=== PATIENT | female | born 1985 | race American Indian/Alaskan Native ===

== ENCOUNTER 2018-06-06 05:02 | Outpatient (CLI) | payer MEDICAID ==
[2018-06-06] MEDS ORDERED: LACTATED RINGERS 1,000 ML IV ONE ×2 (05:34→06:28)
[2018-06-06 06:26] LABS: Bilirubin,Urine NEG (Negative); Blood,Urine NEG (Negative); Color,Urine Yellow (Yellow); Mucus,Urine 2+ /HPF; Protein,Urine <15 mg/dL mg/dL (Negative); Urobilinogen,Urine < 2.0 mg/dL (<2.0)
[2018-06-06] MEDS ORDERED: ZOFRAN IV ONE (06:28)
[2018-06-06] MEDS: BRETHINE SUB-Q SCH ×2 (06:32→06:52)
[2018-06-06 07:20] VITALS: BP 105/58
[2018-06-06] MEDS ORDERED: ceFAZolin 2 GM in NACL 0.9% 100 ML IV ONE (07:36)
[2018-06-06] MEDS ORDERED: ANCEF/STERILE WATER 2 GM/20 ML 2 GM/20 ML SYRINGE IV SCH (08:00)
[2018-06-06] MEDS ORDERED: VISTARIL PO ONE (09:00)
== END 2018-06-06 08:38 | disposition home or self-care (01) ==
LOC: TRG 05:02
PROVIDERS: ATTEND Obstetrics & Gynecology
DX: O47.03 False labor before 37 completed weeks of gestation, third trimester (principal); Z3A.30 30 weeks gestation of pregnancy
CPT/HCPCS: 36415; 81001; 82731; 82962; 96361; 96365; 96372; J0690; J3105; J7120; 96360; Q0177

== ENCOUNTER 2018-06-19 22:01 | Outpatient (CLI) | payer MEDICAID ==
[2018-06-19] MEDS ORDERED: LACTATED RINGERS 1,000 ML IV ONE (22:35)
[2018-06-19 22:52] VITALS: BP 121/72
[2018-06-19] MEDS ORDERED: BRETHINE SUB-Q ONE (23:48)
[2018-06-20 00:13] LABS: Bacteria,Urine 2+ /HPF (Negative); Bilirubin,Urine NEG (Negative); Blood,Urine NEG (Negative); Color,Urine Straw (Yellow); Protein,Urine <15 mg/dL mg/dL (Negative); Urobilinogen,Urine < 2.0 mg/dL (<2.0)
[2018-06-20] MEDS ORDERED: BRETHINE SUB-Q ONE (01:23)
== END 2018-06-20 01:40 | disposition home or self-care (01) ==
LOC: TRG 22:01
PROVIDERS: ATTEND Obstetrics & Gynecology
DX: O47.03 False labor before 37 completed weeks of gestation, third trimester (principal); O24.410 Gestational diabetes mellitus in pregnancy, diet controlled; Z3A.32 32 weeks gestation of pregnancy
CPT/HCPCS: 81001; J3105; J7120

== ENCOUNTER 2018-06-22 12:21 | Observation (INO) | payer MEDICAID ==
[2018-06-22] MEDS ORDERED: PROCARDIA*For Tocolysis only PO STA (13:03)
[2018-06-22 13:08] LABS: Bilirubin,Urine NEG (Negative); Blood,Urine NEG (Negative); Color,Urine Yellow (Yellow); Mucus,Urine FEW /HPF; Protein,Urine <15 mg/dL mg/dL (Negative); Urobilinogen,Urine < 2.0 mg/dL (<2.0); WBC,Urine < 1.0 /HPF (0.0-6.0)
[2018-06-22] MEDS ORDERED: LACTATED RINGERS 500 ML IV ONE (13:22)
[2018-06-22 13:29] LABS: Hematocrit 35.2 % (30.3-42.9); Hemoglobin 11.9 gm/dl (10.1-14.3); Mean Corpuscular HGB Conc 34 % (30-34); Mean Corpuscular Volume 89 fl (79-97); Platelet Count 147 K/mm3 (140-440); Red Blood Count 3.97 M/mm3 (3.65-5.03); Red Cell Distribution Width 14.9 % (13.2-15.2)
[2018-06-22] MEDS ORDERED: CELESTONE SOLUSPAN IM ONE (14:10)
[2018-06-22] MEDS ORDERED: AMBIEN PO PRN (14:28)
[2018-06-22] MEDS ORDERED: TYLENOL PO PRN (14:28)
[2018-06-22] MEDS ORDERED: ZOFRAN IV PRN (14:28)
[2018-06-22] MEDS ORDERED: COLACE PO PRN (14:28)
[2018-06-22] MEDS ORDERED: ALUM-MAG HYDROX-SIMETH 200-200-20MG/5ML PO PRN (14:28)
--- NOTE | 2018-06-22 14:28 | History and Physical Report ---
History of Present Illness Date of examination: 06/22/18 Date of admission: 06/22/18 Chief complaint: SIUP at 33 weeks gestation with contractions. History of present illness: Patient is a 32 year old , LMP 11/03/17, EDC 08/10/18 at 33 weeks gestation who was sent from the office for contractions. She states that she had contractions 2 days ago and was seen in the triage. Terbutaline was given and the contractions stopped. She was told to follow up in the offcie today. She denies any fluid leakage or bleeding. She reports good movem ent. Exam (by surgical nurse) showed a closed cervix. tracing is CAT1. Past History Past Surgical History: no surgical history Family/Genetic History: none Social history: no significant social history - Obstetrical History Expected Date of Delivery: 08/10/18 Actual Gestation: 33 Week(s) 0 Day(s) : 4 Para: 3 Number of Living Children: 3 Medications and Allergies Allergies Allergy/AdvReac Type Severity Reaction Status Date / Time No Known Allergies Allergy Verified 06/06/18 05:35 Home Medications Medication Instructions Recorded Confirmed Last Taken Type Vit,Calc76/Iron/Folic 1 tab PO DAILY 06/06/18 06/06/18 06/05/18 History [Pnv 29-1 Tablet] - Vital Signs Vital signs: Vital Signs Pulse BP 88 124/69 06/22/18 12:34 06/22/18 12:34 Temp Pulse Resp BP Pulse Ox 88 124/69 06/22/18 12:34 06/22/18 12:34 - Physical Exam Cardiovascular: Normal S1, Normal S2 Lungs: Positive: Clear to auscultation Vulva: both: normal Deep Tendon Reflex Grade: Normal +2 - Obstetrical FHR: category 1 Cervical Dilatation: 0 Cervical Effacement Percentage: 0 station: -3 Uterine Contraction Pattern: Irregular Uterine Contraction Intensity: Moderate Results Result Diagrams: 06/22/18 13:15 All other labs normal. Assessment and Plan - Patient Problems (1) 33 weeks gestation of Current Visit: Yes Status: Acute (2) labor Current Visit: Yes Status: Acute Plan to address problem: Admit for observation. IV hydration. IV amcpicillin for GBS prophylaxis. Procardia PO Q6 hrs. Genital Cx done. FFN pending. Patient had sonogram 2 days ago at [facility]. (3) Gestational diabetes Current Visit: Yes Status: Acute Plan to address problem: FS fasting and 2-hr PP. (4) Obesity Current Visit: Yes Status: Acute Qualifiers: Obesity type: due to excess calories
[2018-06-22] MEDS ORDERED: LACTATED RINGERS 1,000 ML IV SCH (16:00)
[2018-06-22] MEDS ORDERED: MAGNESIUM SULFATE 4GM/100ML 4 GM/100 ML BAG IV ONE (17:30)
[2018-06-22] MEDS: PRENATAL VITAMIN PO SCH (18:00)
[2018-06-22] MEDS: AMPICILLIN/NS 1 GM/50 ML 1 GM/50 ML BAG IV SCH ×2 (18:00→22:01)
[2018-06-22] MEDS: LACTATED RINGERS 1,000 ML IV SCH (18:52)
[2018-06-22] MEDS: MAGNESIUM SULFATE 40GM/1000ML 40 GM/1,000 ML BAG IV SCH (19:40)
[2018-06-22] MEDS: PROCARDIA*For Tocolysis only PO SCH (20:00)
[2018-06-23] MEDS: PROCARDIA*For Tocolysis only PO SCH ×4 (00:46→18:35)
[2018-06-23] MEDS: AMPICILLIN/NS 1 GM/50 ML 1 GM/50 ML BAG IV SCH ×5 (02:17→18:36)
[2018-06-23] MEDS: PRENATAL VITAMIN PO SCH (09:18)
[2018-06-23] MEDS: LACTATED RINGERS 1,000 ML IV SCH (09:18)
--- NOTE | 2018-06-23 10:57 | Progress Note ---
Assessment and Plan - Patient Problems (1) 33 weeks gestation of Current Visit: Yes Status: Acute (2) labor Current Visit: Yes Status: Acute Plan to address problem: Continue inpatient management. IV hydration. IV ampicillin for GBS prophylaxis. Magnesium sulfate for 24-hrs for neuroprotection. Celstone dose #2 due this afternoon. Genital Cx done. FFN pending. Patient had sonogram 2 days ago at [facility]. If patient remains asymptomatic, she may be discharged home after magnesium and celestone completed. (3) Gestational diabetes Current Visit: Yes Status: Acute Plan to address problem: FS fasting and 2-hr PP. (4) Obesity Current Visit: Yes Status: Acute Qualifiers: Obesity type: due to excess calories Subjective - Subjective Date of service: 06/23/18 Principal diagnosis: SIUP at 33 weeks gestation with labor. Interval history: Patient is a 32 year old , LMP 11/03/17, EDC 08/10/18 at 33 weeks gestation who was sent from the office for contractions. She states that she had contractions 2 days earlier. She denied any fluid leakage or bleeding. She reports good movement. Exam (by coagulator) showed a closed cervix. tracing is CAT1. She was treated wit procardia which did not work as she continued to contract. She was treated with magnesium sulfate for neuroprotection, IV ampicillin for GBS prophylaxis, celestone for FLM dose#1 given. This AM, she denies any contractions. She reports good movement. She has gestational diabetes. Objective - Vital Signs Vital Signs: Vital Signs - 12hr 06/22/18 06/22/18 06/22/18 23:01 23:04 23:06 Temperature Pulse Rate 104 H 95 H 98 H Respiratory Rate Blood Pressure 100/51 Blood Pressure [Right] O2 Sat by Pulse 96 97 Oximetry 06/22/18 06/22/18 06/22/18 23:11 23:16 23:21 Temperature Pulse Rate 112 H 94 H 97 H Respiratory Rate Blood Pressure Blood Pressure [Right] O2 Sat by Pulse 97 97 97 Oximetry 06/22/18 06/22/18 06/22/18 23:26 23:31 23:36 Temperature Pulse Rate 95 H 102 H 101 H Respiratory Rate Blood Pressure Blood Pressure [Right] O2 Sat by Pulse 97 97 96 Oximetry 06/22/18 06/22/18 06/22/18 23:41 23:46 23:51 Temperature Pulse Rate 118 H 92 H 101 H Respiratory Rate Blood Pressure Blood Pressure [Right] O2 Sat by Pulse 97 97 96 Oximetry 06/22/18 06/23/18 06/23/18 23:56 00:00 00:01 Temperature 98.2 F Pulse Rate 97 H 98 H 100 H Respiratory 18 Rate Blood Pressure Blood Pressure 120/90 [Right] O2 Sat by Pulse 97 100 96 Oximetry 06/23/18 06/23/18 06/23/18 00:03 00:06 00:11 Temperature Pulse Rate 97 H 101 H 101 H Respiratory Rate Blood Pressure 107/58 Blood Pressure [Right] O2 Sat by Pulse 97 97 Oximetry 06/23/18 06/23/18 06/23/18 00:16 00:21 00:26 Temperature Pulse Rate 103 H 101 H 103 H Respiratory Rate Blood Pressure Blood Pressure [Right] O2 Sat by Pulse 97 96 97 Oximetry 06/23/18 06/23/18 06/23/18 00:31 00:36 00:41 Temperature Pulse Rate 99 H 108 H 103 H Respiratory Rate Blood Pressure Blood Pressure [Right] O2 Sat by Pulse 96 97 97 Oximetry 06/23/18 06/23/18 06/23/18 00:46 00:51 00:56 Temperature Pulse Rate 102 H 95 H 106 H Respiratory Rate Blood Pressure Blood Pressure [Right] O2 Sat by Pulse 96 97 97 Oximetry 06/23/18 06/23/18 06/23/18 01:01 01:03 01:06 Temperature Pulse Rate 107 H 99 H 108 H Respiratory Rate Blood Pressure 122/70 Blood Pressure [Right] O2 Sat by Pulse 96 96 Oximetry 06/23/18 06/23/18 06/23/18 01:11 01:16 01:21 Temperature Pulse Rate 112 H 106 H 106 H Respiratory Rate Blood Pressure Blood Pressure [Right] O2 Sat by Pulse 97 96 96 Oximetry 06/23/18 06/23/18 06/23/18 01:26 01:31 01:36 Temperature Pulse Rate 107 H 109 H 109 H Respiratory Rate Blood Pressure Blood Pressure [Right] O2 Sat by Pulse 96 96 94 Oximetry 06/23/18 06/23/18 06/23/18 01:39 01:41 01:46 Temperature Pulse Rate 113 H 108 H 112 H Respiratory Rate Blood Pressure Blood Pressure [Right] O2 Sat by Pulse 94 95 95 Oximetry 06/23/18 06/23/18 06/23/18 01:51 01:56 02:01 Temperature Pulse Rate 108 H 112 H 112 H Respiratory Rate Blood Pressure Blood Pressure [Right] O2 Sat by Pulse 95 96 96 Oximetry 06/23/18 06/23/18 06/23/18 02:03 02:06 02:11 Temperature Pulse Rate 111 H 114 H 111 H Respiratory Rate Blood Pressure 105/58 Blood Pressure [Right] O2 Sat by Pulse 95 96 Oximetry 06/23/18 06/23/18 06/23/18 02:16 02:21 02:26 Temperature Pulse Rate 110 H 108 H 104 H Respiratory Rate Blood Pressure Blood Pressure [Right] O2 Sat by Pulse 96 96 97 Oximetry 06/23/18 06/23/18 06/23/18 02:31 02:36 02:41 Temperature Pulse Rate 102 H 102 H 105 H Respiratory Rate Blood Pressure Blood Pressure [Right] O2 Sat by Pulse 97 96 97 Oximetry 06/23/18 06/23/18 06/23/18 02:46 02:51 02:56 Temperature Pulse Rate 104 H 101 H 104 H Respiratory Rate Blood Pressure Blood Pressure [Right] O2 Sat by Pulse 97 97 97 Oximetry 06/23/18 06/23/18 06/23/18 03:01 03:03 03:06 Temperature Pulse Rate 101 H 104 H 105 H Respiratory Rate Blood Pressure 101/59 Blood Pressure [Right] O2 Sat by Pulse 97 96 Oximetry 06/23/18 06/23/18 06/23/18 03:11 03:16 03:21 Temperature Pulse Rate 101 H 102 H 95 H Respiratory Rate Blood Pressure Blood Pressure [Right] O2 Sat by Pulse 98 96 98 Oximetry 06/23/18 06/23/18 06/23/18 03:26 03:31 03:36 Temperature Pulse Rate 109 H 97 H 100 H Respiratory Rate Blood Pressure Blood Pressure [Right] O2 Sat by Pulse 97 98 98 Oximetry 06/23/18 06/23/18 06/23/18 03:41 03:46 03:51 Temperature Pulse Rate 101 H 102 H 96 H Respiratory Rate Blood Pressure Blood Pressure [Right] O2 Sat by Pulse 98 96 98 Oximetry 06/23/18 06/23/18 06/23/18 03:56 04:00 04:01 Temperature 98.5 F Pulse Rate 101 H 96 H 99 H Respiratory 18 Rate Blood Pressure Blood Pressure 120/90 [Right] O2 Sat by Pulse 98 100 97 Oximetry 06/23/18 06/23/18 06/23/18 04:03 04:06 04:11 Temperature Pulse Rate 96 H 96 H 99 H Respiratory Rate Blood Pressure 96/50 Blood Pressure [Right] O2 Sat by Pulse 97 97 Oximetry 06/23/18 06/23/18 06/23/18 04:16 04:21 04:26 Temperature Pulse Rate 99 H 99 H 99 H Respiratory Rate Blood Pressure Blood Pressure [Right] O2 Sat by Pulse 97 97 97 Oximetry 06/23/18 06/23/18 06/23/18 04:31 04:36 04:41 Temperature Pulse Rate 95 H 101 H 105 H Respiratory Rate Blood Pressure Blood Pressure [Right] O2 Sat by Pulse 97 96 96 Oximetry 06/23/18 06/23/18 06/23/18 04:46 04:51 04:52 Temperature Pulse Rate 101 H 104 H 104 H Respiratory Rate Blood Pressure Blood Pressure [Right] O2 Sat by Pulse 96 96 93 Oximetry 06/23/18 06/23/18 06/23/18 04:56 05:01 05:03 Temperature Pulse Rate 106 H 103 H 100 H Respiratory Rate Blood Pressure 106/62 Blood Pressure [Right] O2 Sat by Pulse 96 96 93 Oximetry 06/23/18 06/23/18 06/23/18 05:06 05:11 05:13 Temperature Pulse Rate 103 H 95 H 104 H Respiratory Rate Blood Pressure Blood Pressure [Right] O2 Sat by Pulse 96 96 94 Oximetry 06/23/18 06/23/18 06/23/18 05:16 05:21 05:25 Temperature Pulse Rate 106 H 102 H 100 H Respiratory Rate Blood Pressure Blood Pressure [Right] O2 Sat by Pulse 96 96 92 Oximetry 06/23/18 06/23/18 06/23/18 05:26 05:31 05:36 Temperature Pulse Rate 94 H 94 H 112 H Respiratory Rate Blood Pressure Blood Pressure [Right] O2 Sat by Pulse 98 97 98 Oximetry 06/23/18 06/23/18 06/23/18 05:41 05:46 05:51 Temperature Pulse Rate 100 H 103 H 98 H Respiratory Rate Blood Pressure Blood Pressure [Right] O2 Sat by Pulse 98 98 97 Oximetry 06/23/18 06/23/1806/23/19 05:56 06:01 06:03 Temperature Pulse Rate 95 H 97 H 100 H Respiratory Rate Blood Pressure 119/68 Blood Pressure [Right] O2 Sat by Pulse 98 98 Oximetry 06/23/18 06/23/18 06/23/18 06:06 06:11 06:16 Temperature Pulse Rate 103 H 97 H 98 H Respiratory Rate Blood Pressure Blood Pressure [Right] O2 Sat by Pulse 98 98 97 Oximetry 06/23/18 06/23/18 06/23/18 06:21 06:26 06:31 Temperature Pulse Rate 97 H 107 H 109 H Respiratory Rate Blood Pressure Blood Pressure [Right] O2 Sat by Pulse 98 98 98 Oximetry 06/23/18 06/23/18 06/23/18 06:36 06:41 06:46 Temperature Pulse Rate 111 H 111 H 107 H Respiratory Rate Blood Pressure Blood Pressure [Right] O2 Sat by Pulse 97 97 97 Oximetry 06/23/18 06/23/18 06/23/18 06:51 06:56 07:01 Temperature Pulse Rate 110 H 108 H 108 H Respiratory Rate Blood Pressure Blood Pressure [Right] O2 Sat by Pulse 97 97 97 Oximetry 06/23/18 06/23/18 06/23/18 07:03 07:06 07:11 Temperature Pulse Rate 109 H 112 H 108 H Respiratory Rate Blood Pressure 110/55 Blood Pressure [Right] O2 Sat by Pulse 97 97 Oximetry 06/23/18 06/23/18 06/23/18 07:16 07:21 07:26 Temperature Pulse Rate 111 H 110 H 107 H Respiratory Rate Blood Pressure Blood Pressure [Right] O2 Sat by Pulse 97 97 97 Oximetry 06/23/18 06/23/18 06/23/18 07:31 07:36 07:41 Temperature Pulse Rate 107 H 107 H 106 H Respiratory Rate Blood Pressure Blood Pressure [Right] O2 Sat by Pulse 98 98 97 Oximetry 06/23/18 06/23/18 06/23/18 07:46 07:51 07:56 Temperature Pulse Rate 106 H 113 H 101 H Respiratory Rate Blood Pressure Blood Pressure [Right] O2 Sat by Pulse 96 98 98 Oximetry 06/23/18 06/23/18 06/23/18 08:01 08:03 08:06 Temperature Pulse Rate 109 H 101 H 106 H Respiratory Rate Blood Pressure 122/72 Blood Pressure [Right] O2 Sat by Pulse 98 97 Oximetry 06/23/18 06/23/18 06/23/18 08:11 08:16 08:21 Temperature Pulse Rate 112 H 116 H 114 H Respiratory Rate Blood Pressure Blood Pressure [Right] O2 Sat by Pulse 98 98 98 Oximetry 06/23/18 06/23/18 06/23/18 08:26 08:31 08:36 Temperature Pulse Rate 108 H 113 H 111 H Respiratory Rate Blood Pressure Blood Pressure [Right] O2 Sat by Pulse 99 98 99 Oximetry 06/23/18 06/23/18 06/23/18 08:41 08:46 08:51 Temperature Pulse Rate 104 H 104 H 107 H Respiratory Rate Blood Pressure Blood Pressure [Right] O2 Sat by Pulse 99 99 99 Oximetry 06/23/18 06/23/18 06/23/18 08:56 09:01 09:03 Temperature Pulse Rate 105 H 107 H 109 H Respiratory Rate Blood Pressure 118/74 Blood Pressure [Right] O2 Sat by Pulse 99 99 Oximetry 06/23/18 06/23/18 06/23/18 09:06 09:11 09:16 Temperature Pulse Rate 103 H 110 H 107 H Respiratory Rate Blood Pressure Blood Pressure [Right] O2 Sat by Pulse 98 98 99 Oximetry 06/23/18 06/23/18 06/23/18 09:21 09:26 09:31 Temperature Pulse Rate 108 H 111 H 103 H Respiratory Rate Blood Pressure Blood Pressure [Right] O2 Sat by Pulse 99 98 98 Oximetry 06/23/18 06/23/18 06/23/18 09:36 09:41 09:46 Temperature Pulse Rate 101 H 101 H 103 H Respiratory Rate Blood Pressure Blood Pressure [Right] O2 Sat by Pulse 98 97 97 Oximetry 06/23/18 06/23/18 06/23/18 09:51 09:56 10:01 Temperature Pulse Rate 99 H 100 H 99 H Respiratory Rate Blood Pressure Blood Pressure [Right] O2 Sat by Pulse 97 97 97 Oximetry 06/23/18 06/23/18 06/23/18 10:03 10:06 10:11 Temperature Pulse Rate 98 H 100 H 103 H Respiratory Rate Blood Pressure 104/53 Blood Pressure [Right] O2 Sat by Pulse 97 97 Oximetry 06/23/18 06/23/18 06/23/18 10:16 10:21 10:26 Temperature Pulse Rate 100 H 98 H 105 H Respiratory Rate Blood Pressure Blood Pressure [Right] O2 Sat by Pulse 97 97 97 Oximetry 06/23/18 06/23/18 06/23/18 10:31 10:36 10:41 Temperature Pulse Rate 107 H 102 H 95 H Respiratory Rate Blood Pressure Blood Pressure [Right] O2 Sat by Pulse 98 99 98 Oximetry 06/23/18 06/23/18 10:46 10:51 Temperature Pulse Rate 94 H 99 H Respiratory Rate Blood Pressure Blood Pressure [Right] O2 Sat by Pulse 98 98 Oximetry - Exam Cardiovascular: Normal S1, Normal S2 Lungs: Clear to auscultation Vulva: both: normal FHR: category 1 Uterine Contraction Monitor Mode: External Uterine Contraction Pattern: Absent Deep Tendon Reflex Grade: Normal +2 - Labs Labs: Abnormal Labs 06/23/18 00:26 Magnesium 3.90 H Laboratory Results - last 24 hr 06/22/18 06/22/18 06/23/18 13:15 Unknown 00:26 WBC 6.4 RBC 3.97 Hgb 11.9 Hct 35.2 MCV 89 MCH 30 MCHC 34 RDW 14.9 Plt Count 147 Magnesium 3.90 H Urine Color Yellow Urine Turbidity Slightly-cloudy Urine pH 6.0 Ur Specific [place] 1.017 Urine Protein <15 mg/dl Urine Glucose (UA) Neg Urine Ketones Neg Urine Blood Neg Urine Nitrite Neg Urine Bilirubin Neg Urine Urobilinogen < 2.0 Ur Leukocyte Esterase Neg Urine WBC (Auto) < 1.0 Urine RBC (Auto) 1.0 U Epithel Cells (Auto) 5.0 Urine Mucus Few - Results US- obstetric: report reviewed
[2018-06-23] MEDS ORDERED: CELESTONE SOLUSPAN IM SCH (14:00)
[2018-06-23] MEDS: MAGNESIUM SULFATE 40GM/1000ML 40 GM/1,000 ML BAG IV SCH (14:26)
[2018-06-23 21:04] VITALS: BP 120/68
== END 2018-06-23 23:15 | disposition home or self-care (01) ==
LOC: TRG 12:21 → LD 14:28 → TRG 17:23
PROVIDERS: ADMIT Obstetrics & Gynecology; ATTEND Obstetrics & Gynecology
DX: O60.03 Preterm labor without delivery, third trimester (principal); O24.419 Gestational diabetes mellitus in pregnancy, unspecified control; O99.213 Obesity complicating pregnancy, third trimester; Z3A.33 33 weeks gestation of pregnancy
CPT/HCPCS: 36415; 59025; 81001; 82962; 83735; 85027; 87086; 96365; 96366; 96372; G0378; J0290; J0702; J3475; J7120; 96361; 96367; 96368

== ENCOUNTER 2018-07-06 17:31 | Outpatient (CLI) | payer MEDICAID ==
[2018-07-06] MEDS ORDERED: LACTATED RINGERS 500 ML IV ONE (18:03)
[2018-07-06 19:35] LABS: Bacteria,Urine 1+ /HPF (Negative); Bilirubin,Urine NEG (Negative); Blood,Urine NEG (Negative); Color,Urine Yellow (Yellow); Protein,Urine <15 mg/dL mg/dL (Negative); Urobilinogen,Urine < 2.0 mg/dL (<2.0)
[2018-07-06 22:01] VITALS: BP 123/69
[2018-07-06] MEDS ORDERED: VISTARIL PO ONE (22:22)
== END 2018-07-06 22:40 | disposition home or self-care (01) ==
LOC: TRG 17:31
PROVIDERS: ATTEND Obstetrics & Gynecology
DX: O47.03 False labor before 37 completed weeks of gestation, third trimester (principal); O24.419 Gestational diabetes mellitus in pregnancy, unspecified control; Z3A.33 33 weeks gestation of pregnancy
CPT/HCPCS: 59025; 81001; 96360; J7120; Q0177

== ENCOUNTER 2018-07-13 17:37 | Outpatient (CLI) | payer MEDICAID ==
[2018-07-13 17:57] VITALS: BP 116/73
[2018-07-13] MEDS ORDERED: LACTATED RINGERS 500 ML IV ONE (17:58)
[2018-07-13] MEDS ORDERED: ZOFRAN IV ONE (18:00)
[2018-07-13 19:21] LABS: Bilirubin,Urine NEG (Negative); Blood,Urine NEG (Negative); Color,Urine Yellow (Yellow); Mucus,Urine FEW /HPF; Protein,Urine <15 mg/dL mg/dL (Negative); Urobilinogen,Urine < 2.0 mg/dL (<2.0)
[2018-07-13] MEDS ORDERED: TYLENOL PO ONE (21:13)
== END 2018-07-13 21:25 | disposition home or self-care (01) ==
LOC: TRG 17:37
PROVIDERS: ATTEND Obstetrics & Gynecology
DX: O62.9 Abnormality of forces of labor, unspecified (principal); O26.893 Other specified pregnancy related conditions, third trimester; R11.0 Nausea; Z3A.36 36 weeks gestation of pregnancy
CPT/HCPCS: 59025; 81001; 82962; 96374; J2405; J7120; 96360

== ENCOUNTER 2018-07-24 21:10 | Outpatient (CLI) | payer MEDICAID ==
[2018-07-24 21:22] VITALS: BP 116/75
[2018-07-24] MEDS ORDERED: VISTARIL PO ONE (23:10)
== END 2018-07-25 00:30 | disposition home or self-care (01) ==
LOC: TRG 21:10
PROVIDERS: ATTEND Obstetrics & Gynecology
DX: O47.03 False labor before 37 completed weeks of gestation, third trimester (principal); O24.419 Gestational diabetes mellitus in pregnancy, unspecified control; Z3A.37 37 weeks gestation of pregnancy
CPT/HCPCS: 59025; Q0177

== ENCOUNTER 2018-07-30 09:47 | Outpatient (CLI) | payer MEDICAID ==
[2018-07-30] MEDS ORDERED: LACTATED RINGERS 1,000 ML IV SCH (10:00)
[2018-07-30] MEDS ORDERED: LACTATED RINGERS 1,000 ML IV ONE (10:23)
[2018-07-30 11:16] LABS: Bilirubin,Urine NEG (Negative); Blood,Urine NEG (Negative); Color,Urine Yellow (Yellow); Mucus,Urine FEW /HPF
[2018-07-30 11:30] LABS: Amphetamine Screen,Urine PRESUMPTIVE NEGATIVE; Benzodiazepines Screen,Urine PRESUMPTIVE NEGATIVE; Cannabinoid Screen,Urine PRESUMPTIVE NEGATIVE; Cocaine Screen,Urine PRESUMPTIVE NEGATIVE; Methadone Screen,Urine PRESUMPTIVE NEGATIVE; Opiate Screen,Urine PRESUMPTIVE NEGATIVE
--- NOTE | 2018-07-30 11:57 | Ultrasound Report ---
PROCEDURE: US OB BPP WO NON-STRESS TECHNIQUE: Biophysical profile was performed. HISTORY: BPP COMPARISONS: None. FINDINGS: A single live intrauterine fetus is present. heart rate was detected at 149 bpm. Normal biophys ical profile score was noted. A score of 8 out of 8 is noted. Scores of 2 out of 2 were given for fet al breathing movements, movements, posture internal and qualitative amniotic fluid volume . The amniotic fluid index is 10.3 cm. IMPRESSION: Normal biophysical profile. This document is electronically signed by Marcela Avery., July 30 2018 11:55:03 AM ET
--- NOTE | 2018-07-30 11:58 | Ultrasound Report ---
PROCEDURE: US OB LIMITED TECHNIQUE: OB ultrasound was performed. HISTORY: BPP COMPARISONS: None. FINDINGS: A single live intrauterine fetus is present in cephalic presentation with a heart rate of 149 bpm. Am niotic fluid index is 10.3 cm. IMPRESSION: Live intrauterine fetus with an amniotic index of 10.3 cm. This document is electronically signed by Marcela Avery., July 30 2018 11:56:15 AM ET
--- NOTE | 2018-07-30 13:21 | Progress Note ---
Assessment and Plan A: at 38 weeks, 3 days gestation. False labor. GDM (patient states well controlled). Reactive NST, normal HAKEEM, BPP 8/8. P: Discharge patient home; advised patient to follow up at [facility] tomorrow. Advised patient to count movements daily. Urine C&S sent. Advised patient re: signs of labor and warning signs. Subjective - Subjective Date of service: 07/30/18 Principal diagnosis: Contractions Interval history: 32 year old at 38 weeks, 3 days gestation presents to rule out labor. Patient reports irregular contractions for past several days. Patient denies leaking of fluid or vaginal bleeding. Patient denies urinary symptoms. Patient sees [facility] for her care and states she has GDM which is well controlled on ADA diet (she states she also sees [facility]). Patient states she has follow up appointment with both this week. Patient reports: movement normal, contractions, no new complaints, no loss of fluid, no vaginal bleeding Objective - Vital Signs Vital Signs: Vital Signs - 12hr 07/30/18 10:07 Temperature 97.6 F - Exam Narrative Exam: BPP 8/8. Normal HAKEEM. Urinalysis shows 4 RBCs per HPF. Urine C&S sent. Patient declines treatment; denies urinary symptoms. Abdomen: Present: normal appearance, soft. Absent: tenderness Uterus: Present: normal, fundal height above umbilicus FHR: category 1 Uterine Contraction Monitor Mode: External Cervical Dilatation: 2 Cervical Effacement Percentage: 50 station: -3 Uterine Contraction Pattern: Irregular Uterine Contraction Intensity: Mild Extremities: normal - Labs Labs: Laboratory Results - last 24 hr 07/30/18 07/30/18 Unknown Unknown Urine Color Yellow Urine Turbidity Slightly-cloudy Urine pH 6.0 Ur Specific [place] 1.030 Urine Protein 30 mg/dl Urine Glucose (UA) Neg Urine Ketones Tr Urine Blood Neg Urine Nitrite Neg Urine Bilirubin Neg Urine Urobilinogen 2.0 Ur Leukocyte Esterase Neg Urine WBC (Auto) 2.0 Urine RBC (Auto) 4.0 U Epithel Cells (Auto) 9.0 Urine Mucus Few Urine Opiates Screen Presumptive negative Urine Methadone Screen Presumptive negative Ur Barbiturates Screen Presumptive negative Ur Phencyclidine Scrn Presumptive negative Ur Amphetamines Screen Presumptive negative U Benzodiazepines Scrn Presumptive negative Urine Cocaine Screen Presumptive negative U Marijuana (THC) Screen Presumptive negative Drugs of Abuse Note Disclamer
[2018-07-30 13:30] VITALS: BP 118/65
== END 2018-07-30 13:16 | disposition home or self-care (01) ==
LOC: TRG 09:47
PROVIDERS: ATTEND Obstetrics & Gynecology
DX: O62.9 Abnormality of forces of labor, unspecified (principal); O47.1 False labor at or after 37 completed weeks of gestation; Z3A.38 38 weeks gestation of pregnancy
CPT/HCPCS: 59025; 76815; 76819; 80307; 81001; 87086; 96360; J7120

== ENCOUNTER 2018-08-03 23:34 | Inpatient (IN) | payer MEDICAID ==
[2018-08-04] MEDS ORDERED: STADOL IV PRN (01:00)
--- NOTE | 2018-08-04 02:00 | History and Physical Report ---
History of Present Illness Date of examination: 08/04/18 (01:50) Date of admission: 08/03/18 23:46 Chief complaint: Contractions History of present illness: 32 AA Fe , ABISAI 08/10/2018 (LMP), 39w 1d, presents in active labor. SROM 08/03/18 @ 23:40. light meconium. Pt initiated early care with [facility] at 9w. Maternal obesity (BMI 30.7) HgbA1c 6.0, early Gtt 160, 03/20: 3 hr wnl. Repeat 3hr: 96(H), 195(H), 137, 127. labs: O positive, Rubella Immune, VDRL NR, HBsAg Neg, HIV Neg, Gc/Cl/Trich Neg, Varicella NI. GBS Negative. Past History Past Medical History: diabetes (GDM) Past Surgical History: no surgical history [facility] History: denies: abnormal PAP smear, chlamydia, gonorrhea, hepatitis B, hepatitis C, herpes, HIV, syphilis, trichomonas Family/Genetic History: none Social history: no significant social history, , lives with family, full code. denies: smoking, alcohol abuse, prescription drug abuse, IV drug use - Obstetrical History Expected Date of Delivery: 08/10/18 Actual Gestation: 39 Week(s) 1 Day(s) : 4 Para: 3 Hx # Term Pregnancies: 3 Number of Pregnancies: 0 Spontaneous Abortions: 0 Induced : 0 Number of Living Children: 3 #1 Gender: Male year: 2[birth year] Birthweight: 3.289 kg Method of Delivery: Vaginal Gestational age at delivery: 40 Complications: none #2 Gender: Female year: 2,[birth year] Birthweight: 3.317 kg Method of Delivery: Vaginal Gestational age at delivery: 40 Complications: none #3 Gender: Male year: 2,010 Birthweight: 3.175 kg Method of Delivery: Vaginal Gestational age at delivery: 40 Complications: none Medications and Allergies Allergies Allergy/AdvReac Type Severity Reaction Status Date / Time No Known Allergies Allergy Verified 06/06/18 05:35 Home Medications Medication Instructions Recorded Confirmed Last Taken Type Vit,Calc76/Iron/Folic 1 tab PO DAILY 06/06/18 06/22/18 06/05/18 History [Pnv 29-1 Tablet] Review of Systems Eyes: normal appearance Cardiovascular: no chest pain, no shortness of breath Respiratory: no shortness of breath Breasts: normal Gastrointestinal: no nausea, no vomiting, no diarrhea Genitourinary: normal appearance, leakage of fluid, contractions, no genital sores Integumentary: no rash, no sores, no lesions Neurological: other (Denies) Psychiatric: other (Denies) - Vital Signs Vital signs: Vital Signs Pulse BP 88 143/84 08/03/18 23:53 08/03/18 23:53 Temp Pulse Resp BP Pulse Ox 97.9 F 86 22 139/92 08/04/18 00:18 08/04/18 01:49 08/04/18 00:18 08/04/18 01:49 - Physical Exam Cardiovascular: Regular rate, Normal S1, Normal S2, No murmurs Lungs: Positive: Clear to auscultation, Normal air movement Abdomen: Positive: normal appearance, soft, normal bowel sounds. Negative: distention Genitourinary (Female): Positive: normal external genitalia, normal perenium Vulva: both: normal Vagina: Positive: normal moisture Uterus: Positive: enlarged (gravid) Anus/Rectum: Positive: normal perianal skin Extremities: Positive: normal - Obstetrical FHR: auscultation normal Uterine Contraction Monitor Mode: External Cervical Dilatation: 4 (On admission per RN) Cervical Effacement Percentage: 80 station: -4 Uterine Contraction Pattern: Regular Uterine Tone Measurement Phase: Resting Uterine Contraction Intensity: Strong/Firm Results Result Diagrams: 08/03/18 23:57 All other labs normal. Assessment and Plan A: TIUP at 39w1d GDM; Diet controlled Active labor Category 1 tracing GBS negative SROM 08/03/18 @2340, light meconium P: Routine labor orders May have IV pain med/epidural PRN Anticipate
[2018-08-04 02:14] LABS: Hematocrit 38.9 % (30.3-42.9); Hemoglobin 12.9 gm/dl (10.1-14.3); Mean Corpuscular HGB Conc 33 % (30-34); Mean Corpuscular Volume 89 fl (79-97); Platelet Count 135 K/mm3 (140-440)
[2018-08-04] MEDS ORDERED: STADOL ONE (03:00)
[2018-08-04] MEDS ORDERED: LACTATED RINGERS 2,000 ML ONE (03:29)
[2018-08-04] MEDS ORDERED: PITOCin/NS 20 UNIT/1000ML DRIP 20,000 MILLIUNITS/1,000 ML BAG IV ONE ×2 (03:41→03:42)
[2018-08-04] MEDS ORDERED: LACTATED RINGERS 1,000 ML IV SCH ×3 (04:00→06:00)
[2018-08-04] MEDS ORDERED: PITOCin/NS 20 UNIT/1000ML DRIP 20 UNITS/1,000 ML BAG IV SCH ×4 (04:00→09:37)
[2018-08-04] MEDS ORDERED: PITOCin/NS 30 UNIT/500ML 30,000 MILLIUNITS/500 ML BAG IV ONE (04:23)
[2018-08-04] MEDS ORDERED: BRETHINE IVP PRN (04:54)
[2018-08-04] MEDS ORDERED: XYLOCAINE 2% INFILTRATI ONE (04:54)
[2018-08-04] MEDS ORDERED: BRETHINE SUB-Q PRN (04:54)
[2018-08-04] MEDS ORDERED: MINERAL OIL PO PRN (04:54)
[2018-08-04] MEDS ORDERED: PITOCin/NS 30 UNIT/500ML 30 UNITS/500 ML BAG IV SCH (05:00)
--- NOTE | 2018-08-04 05:26 | Progress Note ---
Assessment and Plan A: TIUP at 39w1d GDM; Diet controlled Active labor Category 2 tracing OP position Maternal fatigue Pushed with pt from 3:40-5am with minimal decent. Discussed position being OP. Pt desires epidural. Informed of possibility/probability of primary c/s. P: Routine labor orders Pitocin augmentation Proceed with Epidural 05:[address] Narda Willams MD. Informed of pt status , proven pelvis 7.5, GDM (OBUS this week [id number]), good maternal pushing efforts for 1 hr 20 min. Plan for epidural, pitocin augmentation, and recheck in 1 hr. Subjective - Subjective Date of service: 08/04/18 Interval history: 32 AA Fe , ABISAI 08/10/2018 (LMP), 39w 1d, presents in active labor. SROM 08/03/18 @ 23:40. light meconium. Patient reports: loss of fluid, vaginal bleeding, movement normal, contractions Objective - Vital Signs Vital Signs: Vital Signs - 12hr 08/03/18 08/04/18 08/04/18 23:53 00:14 00:18 Temperature 97.9 F Pulse Rate 88 91 H Respiratory 22 Rate Blood Pressure 143/84 131/79 O2 Sat by Pulse Oximetry 08/04/18 08/04/18 08/04/18 00:48 01:18 01:49 Temperature Pulse Rate 82 81 86 Respiratory Rate Blood Pressure 130/80 129/78 139/92 O2 Sat by Pulse Oximetry 08/04/18 08/04/18 08/04/18 02:54 03:53 04:46 Temperature Pulse Rate 98 H 107 H 94 H Respiratory Rate Blood Pressure 127/60 129/61 O2 Sat by Pulse 95 Oximetry 08/04/18 08/04/18 08/04/18 04:51 04:52 04:53 Temperature Pulse Rate 85 95 H 99 H Respiratory Rate Blood Pressure 124/66 O2 Sat by Pulse 96 94 Oximetry 08/04/18 08/04/18 08/04/18 04:55 04:56 04:57 Temperature Pulse Rate 98 H 89 90 Respiratory Rate Blood Pressure 127/69 119/66 O2 Sat by Pulse 97 Oximetry 08/04/18 08/04/18 08/04/18 04:59 05:01 05:03 Temperature Pulse Rate 96 H 102 H 90 Respiratory Rate Blood Pressure 118/62 105/60 113/66 O2 Sat by Pulse 95 Oximetry 08/04/18 08/04/18 08/04/18 05:05 05:06 05:07 Temperature Pulse Rate 108 H 94 H 108 H Respiratory Rate Blood Pressure 115/64 O2 Sat by Pulse 99 91 Oximetry - Exam Breasts: normal Cardiovascular: Regular rate, Normal S1, Normal S2, No murmurs Lungs: Clear to auscultation, Normal air movement Abdomen: Present: normal appearance, soft, normal bowel sounds Vulva: both: normal Uterus: Present: other (gravid) FHR: category 2 FHR comments: Early decels noted Uterine Contraction Monitor Mode: External Cervical Dilatation: 10 Cervical Effacement Percentage: 10 station: 0 Uterine Contraction Frequency (min): 2-4 Uterine Contraction Pattern: Regular Uterine Tone Measurement Phase: Resting Uterine Contraction Intensity: Strong/Firm Extremities: normal Deep Tendon Reflex Grade: Normal +2 - Labs Labs: Abnormal Labs 08/03/18 23:57 Plt Count 135 L Laboratory Results - last 24 hr 08/03/18 08/03/18 08/04/18 23:57 23:57 00:33 WBC 6.4 RBC 4.40 Hgb 12.9 Hct 38.9 MCV 89 MCH 29 MCHC 33 RDW 15.0 Plt Count 135 L POC Glucose 97 Blood Type O POSITIVE Antibody Screen Negative
[2018-08-04] MEDS ORDERED: NARCAN 2 MG/2 ML IV PRN (05:29)
--- NOTE | 2018-08-04 05:31 | Anesthesia Consultation ---
Anesthesia Consult and Med Hx Date of service: 08/04/18 - Airway Anesthetic Teeth Evaluation: Good ROM Head & Neck: Adequate Mental/Hyoid Distance: Adequate Mallampati Class: Class II Intubation Access Assessment: Probably Good - Pulmonary Exam CTA: Yes - Cardiac Exam Cardiac Exam: RRR - Pre-Operative Health Status ASA Pre-Surgery Classification: ASA2 Proposed Anesthetic Plan: Epidural - Pulmonary Hx Smoking: No Hx Asthma: No Hx Respiratory Symptoms: No SOB: No COPD: No Home Oxygen Therapy: No Hx Pneumonia: No Hx Sleep Apnea: No - Cardiovascular System Hx Hypertension: No Hx Coronary Artery Disease: No Hx Heart Attack/AMI: No Hx Angina: No Hx Percutaneous Transluminal Coronary Angioplasty (PTCA): No Hx Cardia Arrhythmia: No Hx Pacemaker: No Hx Internal Defibrillator: No Hx Valvular Heart Disease: No Hx Heart Murmur: No Hx Peripheral Vascular Disease: No - Central Nervous System Hx Neuromuscular Disorder: No Hx Seizures: No CVA: No Hx Back Pain: No Hx Psychiatric Problems: No - Gastrointestinal Hx Ulcer: No Hx Gastroesophageal Reflux Disease: No - Endocrine Hx Renal Disease: No Hx Cirrhosis: No Hx Liver Disease: No Hx Insulin Dependent Diabetes: No Hx Non-Insulin Dependent Diabetes: No Hx Thyroid Disease: No Hx Hypothyroidism: No Hx Hyperthyroidism: No - Hematic Hx Anemia: No Hx Sickle Cell Disease: No - Other Systems Hx Alcohol Use: No Hx Substance Use: No Hx Cancer: No Hx Obesity: No
[2018-08-04] MEDS ORDERED: PEPCID IV ONE (05:52)
[2018-08-04] MEDS ORDERED: REGLAN IV ONE (05:52)
[2018-08-04] MEDS ORDERED: BICITRA PO ONE (05:52)
[2018-08-04] MEDS ORDERED: fentaNYL-BUPIV 2 MCG/ML-0.125% 200 MCG/100 ML BAG EPIDURAL SCH (06:00)
[2018-08-04] MEDS ORDERED: ANCEF/STERILE WATER 2 GM/20 ML 2 GM/20 ML SYRINGE IV NR (06:00)
--- NOTE | 2018-08-04 06:01 | Event Note ---
Date: 08/04/18 (06:50) S: Comfortable with epidural Maternal fatigue O: Category 2 tracing: FHT 160s, variable decels SVE ; caput position OP A: TIUP at 39w1d GDM; Diet controlled Active labor Category 2 tracing Failure to descend P: Pt informed of need to proceed with Primary c/section. Dr. Narda Willams MD called and requested to come for Primary C/S. C/S called. Pre-op orders given Pitocin off
[2018-08-04] MEDS ORDERED: SUBLIMAZE ONE (06:36)
[2018-08-04] MEDS ORDERED: XYLOCAINE MPF 2% ONE (06:36)
[2018-08-04] MEDS ORDERED: ANCEF/STERILE WATER 2 GM/20 ML IV ONE (06:42)
[2018-08-04] MEDS ORDERED: WATER FOR IRRIG STERILE IR ONE (06:48)
[2018-08-04] MEDS ORDERED: NACL 0.9% IR ONE (06:48)
--- NOTE | 2018-08-04 08:05 | Post Anesthesia Evaluation ---
- Post Anesthesia Evaluation Patient Participated: Yes Airway Patent: Yes Stable Respiratory Function: Yes Nausea/Vomiting: No Temp > 96.8F: Yes Pain Manageable: Yes Adequeate Hydration: Yes Anesthesia Complications: No Block Receding Appropriately: Yes Patient on Ventilator: No
[2018-08-04] MEDS ORDERED: PHENERGAN PO PRN (08:30)
[2018-08-04] MEDS ORDERED: BENADRYL IV PRN (08:30)
[2018-08-04] MEDS ORDERED: NARCAN 0.4 MG/1 ML IV PRN ×2 (08:30→09:37)
[2018-08-04] MEDS ORDERED: DILAUDID IV PRN (08:30)
[2018-08-04] MEDS ORDERED: PHENERGAN PR PRN (08:30)
[2018-08-04] MEDS ORDERED: SODIUM CHLORIDE FLUSH SYRINGE 10 ML IV PRN (09:00)
[2018-08-04] MEDS ORDERED: ZOFRAN IV PRN ×2 (09:00→19:40)
[2018-08-04] MEDS ORDERED: TUCKS PAD TP PRN (09:37)
[2018-08-04] MEDS ORDERED: TYLENOL PR PRN (09:37)
[2018-08-04] MEDS ORDERED: LANSINOH TP PRN (09:37)
[2018-08-04] MEDS ORDERED: MORPHINE IV PRN (09:37)
[2018-08-04] MEDS ORDERED: SODIUM CHLORIDE FLUSH SYRINGE 10 ML IV NR (09:37)
[2018-08-04] MEDS ORDERED: MYLICON PO PRN (09:37)
[2018-08-04] MEDS: IBUPROFEN PO PRN ×2 (10:36→17:24)
[2018-08-04] MEDS: PERCOCET 5/325 PO PRN ×3 (10:37→22:19)
[2018-08-04] MEDS: PRENATAL VITAMIN PO SCH (10:37)
[2018-08-04] MEDS ORDERED: LACTATED RINGERS 1,000 ML IV ONE (13:00)
--- NOTE | 2018-08-04 16:44 | Procedure Note ---
OB Delivery Note - Delivery Date of Delivery: 08/04/18 Surgeon: CHETAN LI Estimated blood loss: other (800) - Section Preop diagnosis: arrest of descent Postop diagnosis: same section procedure: primary low transverse Disposition: PACU Complications: none Narrative: see op report - A at 1 minute: 8 at 5 minutes: 9 Gender: Male (8 pounds 2 ounces)
[2018-08-04 19:43] LABS: Hematocrit 30.8 % (30.3-42.9); Hemoglobin 10.2 gm/dl (10.1-14.3)
[2018-08-04] MEDS ORDERED: MILK OF MAGNESIA PO PRN (22:00)
[2018-08-05] MEDS: PERCOCET 5/325 PO PRN ×3 (04:13→19:39)
[2018-08-05] MEDS: PRENATAL VITAMIN PO SCH (09:13)
[2018-08-05] MEDS: IBUPROFEN PO PRN ×2 (09:13→19:39)
--- NOTE | 2018-08-05 09:52 | Progress Note ---
Assessment and Plan A: /postop day 1 S/P primary low transverse section. Anemia secondary to and blood loss. P: Iron supplmentation when tolerating solids. Encouraged ambulation. Subjective - Subjective Date of service: 08/05/18 Principal diagnosis: /postop day 1 S/P primary low transverse section Interval history: /postop day 1 S/P primary low transverse section. Fenton catheter has been removed and patient is voiding without difficulty. Has not passed gas yet. Ambulating in room without difficulty; plans to ambulate in [place] today. Tolerating a liquid diet. Patient denies headache, chest pain, cough, shortness of breath, dizziness, vomiting, heavy bleeding, or abdominal pain. States pain medication is controlling her incisional pain. Patient reports: appetite normal, voiding normally, pain well controlled, ambulating normally, no dizzy ambulation, no flatus, no nauseated : doing well Objective - Vital Signs Latest vital signs: Vital Signs Temp Pulse Resp BP BP Pulse Ox 08/05/18 08:05 98.8 F 94 H 18 127/70 98 08/05/18 04:13 20 08/05/18 03:55 98.7 F 18 112/59 08/05/18 03:53 98.7 F 88 18 112/59 98 08/05/18 00:49 98.6 F 81 18 109/64 08/04/18 22:19 18 08/04/18 20:45 98.1 F 86 18 115/83 99 08/04/18 16:34 99.1 F 86 18 117/74 08/04/18 13:01 98.4 F 82 18 124/73 Intake and Output 08/04/18 08/05/18 08/05/18 23:59 07:59 15:59 Intake Total 480 240 Output Total 1500 600 Balance -1020 -360 Intake: Oral 240 Intake, Free Water 240 240 Output: Urine 1500 600 Indwelling Catheter 1200 Void 300 600 Other: Total, Intake Amount 240 Total, Output Amount 300 600 - Exam Cardiovascular: Present: Regular rate, Normal S1, Normal S2 Lungs: Present: Clear to auscultation Abdomen: Present: normal appearance, soft, normal bowel sounds. Absent: distention, tenderness, guarding, rigidity Uterus: Present: normal, firm, fundal height below umbilicus. Absent: bogginess, tenderness Extremities: Present: normal. Absent: tenderness, edema Incision: Present: normal, dry, intact, dressed
[2018-08-05 10:07] LABS: Basophils # (Auto) 0.1 K/mm3 (0.0-0.1); Basophils % (Auto) 0.5 % (0.0-1.8); Eosinophils # (Auto) 0.1 K/mm3 (0.0-0.4); Eosinophils % (Auto) 1.2 % (0.0-4.3); Hematocrit 28.5 % (30.3-42.9); Hemoglobin 9.5 gm/dl (10.1-14.3); Lymphocytes # (Auto) 1.6 K/mm3 (1.2-5.4); Lymphocytes % (Auto) 14.3 % (13.4-35.0); Mean Corpuscular HGB Conc 33 % (30-34); Mean Corpuscular Volume 89 fl (79-97); Monocytes # (Auto) 0.9 K/mm3 (0.0-0.8); Monocytes % (Auto) 8.3 % (0.0-7.3); Platelet Count 123 K/mm3 (140-440); Red Blood Count 3.22 M/mm3 (3.65-5.03)
[2018-08-05 10:29] LABS: Alanine Aminotransferase 12 units/L (7-56); Albumin 2.5 g/dL (3.9-5); BUN/Creatinine Ratio 7; Blood Urea Nitrogen 4 mg/dL (7-17); Calcium 7.9 mg/dL (8.4-10.2); Hemolysis Index 8
[2018-08-06] MEDS: IBUPROFEN PO PRN ×3 (02:56→19:04)
[2018-08-06] MEDS: PRENATAL VITAMIN PO SCH (10:13)
[2018-08-06] MEDS: FEOSOL PO SCH (10:13)
--- NOTE | 2018-08-06 12:48 | Progress Note ---
Assessment and Plan A: /postop day 2 S/P primary low transverse section. Anemia secondary to and blood loss. Heart murmur (new). P: Consulted with Dr. Coffman re: patient and new heart murmur. Dr. Coffman advises to have patient follow up as an outpatient with cardiology after discharge. Patient advised accordingly. Continue iron supplementation. Encouraged ambulation. Subjective - Subjective Date of service: 08/06/18 Principal diagnosis: /postop day 2 S/P primary low transverse section Interval history: /postop day 2 S/P primary low transverse section. Doing well. Patient state she is voiding without difficulty, ambulating well, passing gas, and tolerating a regular diet without nausea or vomiting. Patient denies headache, chest pain, cough, shortness of breath, dizziness, abdominal pain, leg pain, or heavy vaginal bleeding. She denies fatigue at rest or with exertion. Patient reports: appetite normal, voiding normally, pain well controlled, flatus, ambulating normally, no dizzy ambulation, no nauseated [place]: doing well Objective - Vital Signs Latest vital signs: Vital Signs Temp Pulse Resp BP BP Pulse Ox 08/06/18 07:30 98.2 F 88 18 110/63 08/06/18 02:56 20 08/06/18 02:05 98.8 F 89 20 105/62 100 08/05/18 19:39 24 08/05/18 15:35 98.4 F 82 20 115/59 Intake and Output 08/05/18 08/06/18 08/06/18 23:59 07:59 15:59 Intake Total 480 Balance 480 Intake: Oral 480 Other: Total, Intake Amount 480 # Voids Void 1 1 - Exam Cardiovascular: Present: Regular rate, Normal S1, Normal S2, Other (murmur heard) Lungs: Present: Clear to auscultation Abdomen: Present: normal appearance, soft, normal bowel sounds. Absent: distention, tenderness, guarding, rigidity Uterus: Present: normal, firm, fundal height below umbilicus. Absent: bogginess, tenderness Extremities: Present: normal. Absent: tenderness, edema Incision: Present: normal, dry, intact, dressed
[2018-08-06] MEDS: PERCOCET 5/325 PO PRN (23:48)
[2018-08-07] MEDS: IBUPROFEN PO PRN (05:36)
[2018-08-07] MEDS ORDERED: BOOSTRIX IM ONE (06:00)
[2018-08-07] MEDS: FEOSOL PO SCH (09:26)
[2018-08-07] MEDS: PRENATAL VITAMIN PO SCH (09:27)
--- NOTE | 2018-08-07 10:13 | Progress Note ---
Assessment and Plan - Patient Problems (1) S/P primary low transverse Current Visit: Yes Status: Acute Plan to address problem: POD 3 - stable Continue routine postop orders Discharge to home today Follow up at [facility] on 08/11/18 for dickson removal (2) Anemia due to blood loss, acute Current Visit: Yes Status: Acute Plan to address problem: Asymptomatic Continue iron therapy (3) Gestational diabetes Current Visit: No Status: Acute Qualifiers: Gestational diabetes mellitus control: diet-controlled Trimester: third trimester Qualified Code(s): O24.410 - Gestational diabetes mellitus in , diet controlled Plan to address problem: Blood sugar on admission 97 Subjective - Subjective Date of service: 08/07/18 Principal diagnosis: POD #3; s/p Primary LTCS Interval history: see H&P, OB Progress Note, Event Note, OB Delivery Procedure Note and PP/COMPOSITION MIXER Progress Notes Patient reports: appetite normal, voiding normally, pain well controlled, flatus, bowel movement, ambulating normally, no dizzy ambulation : doing well, nursing well, bottle feeding Objective - Vital Signs Latest vital signs: Vital Signs Temp Pulse Resp BP BP Pulse Ox 08/07/18 08:43 98.4 F 91 H 20 114/78 98 08/07/18 06:36 18 08/07/18 05:36 18 08/07/18 00:48 18 08/06/18 23:48 18 08/06/18 23:19 98.3 F 88 16 120/55 97 08/06/18 20:04 18 08/06/18 19:04 18 08/06/18 16:19 98.4 F 89 18 105/58 Intake and Output 08/06/18 08/07/18 08/07/18 23:59 07:59 15:59 Intake Total 900 360 Balance 900 360 Intake: Oral 480 Intake, Free Water 420 360 Other: Total, Intake Amount 480 # Voids Void 1 1 # Bowel Movements 1 - Exam Cardiovascular: Present: Regular rate Lungs: Present: Clear to auscultation Abdomen: Present: normal appearance, soft Vulva: both: normal Uterus: Present: normal, firm, fundal height below umbilicus Extremities: Present: normal Incision: Present: normal, dry, intact, other (dickson in place) Comments: scant lochia
--- NOTE | 2018-08-07 10:23 | Discharge Summary ---
Providers - Providers Date of Admission: 08/03/18 23:46 Date of discharge: 08/07/18 Attending physician: GLADIS JUDGE MD Primary care physician: GLADIS JUDGE MD Hospitalization Reason for admission: active labor, IUP at term Delivery: Procedure: primary low transverse Episiotomy: none Laceration: none Incision: normal, dry, intact, other (dickson in place) Other procedures: none complications: none Discharge diagnosis: IUP at term delivered baby: male Hospital course: Uncomplicated Condition at discharge: Stable Disposition: DC-01 TO HOME OR SELFCARE - Discharge Diagnoses (1) S/P primary low transverse Status: Acute (2) Anemia due to blood loss, acute Status: Acute Comment: Asymptomatic Continue iron therapy (3) Gestational diabetes Status: Acute Qualifiers: Gestational diabetes mellitus control: diet-controlled Trimester: third trimester Qualified Code(s): O24.410 - Gestational diabetes mellitus in , diet controlled Plan - Discharge Medications Prescriptions: Ferrous Sulfate [Feosol 325 MG tab] 325 mg PO QDAY #30 tablet Ibuprofen [Motrin 800 MG tab] 800 mg PO Q6H PRN #30 tablet PRN Reason: Pain, Mild (1-3) - Provider Discharge Summary Activity: routine, no sex for 6 weeks, no heavy lifting 4 weeks, no strenuous exercise Diet: routine Instructions: routine Additional instructions: [] Smoking cessation referral if applicable(refer to patient education folder for contact #) [] Refer to [facility] Booklet Call your doctor immediately for: * Fever > 100.5 * Heavy vaginal bleeding ( >1 pad per hour) * Severe persistent headache * Shortness of breath * Reddened, hot, painful area to leg or breast * Drainage or odor from incision. * Keep incision clean and dry at all times and follow doctor's instructions regarding bathing/showering - Follow up plan Follow up: GLADIS JUDGE MD [Primary Care Provider] - 08/11/18 ([facility] on 08/11/18 for dickson removal) Forms: [facility] Discharge Summary
[2018-08-07] MEDS ORDERED: AFLURIA QUAD 2018-2019 SYRINGE IM ONE (12:00)
[2018-08-08 18:02] VITALS: BP 122/78
== END 2018-08-07 12:00 | disposition home or self-care (01) | DRG 765 ==
LOC: TRG 23:34 → LD 23:46 → OB 08-04 09:21
PROVIDERS: ADMIT Obstetrics & Gynecology; ATTEND Obstetrics & Gynecology
PROC: 10D00Z1 Extraction of Products of Conception, Low, Open Approach (ICD-10-PCS; principal; 2018-08-04)
DX: O24.420 Gestational diabetes mellitus in childbirth, diet controlled (principal); O99.42 Diseases of the circulatory system complicating childbirth; D62 Acute posthemorrhagic anemia; O64.8XX0 Obstructed labor due to other malposition and malpresentation, not applicable or unspecified; O99.02 Anemia complicating childbirth; R01.1 Cardiac murmur, unspecified; O62.1 Secondary uterine inertia; O26.813 Pregnancy related exhaustion and fatigue, third trimester; O99.214 Obesity complicating childbirth; E66.01 Morbid (severe) obesity due to excess calories; Z3A.39 39 weeks gestation of pregnancy; Z37.0 Single live birth
CPT/HCPCS: 36415; 80053; 82962; 85014; 85018; 85025; 85027; 86592; 86850; 86900; 86901; 88307; 90471; 90686; 90715; G0378; J0595; J0690; J1170; J2405; J2590; J2765; J3010; J7120

== ENCOUNTER 2018-08-19 19:46 | Inpatient (IN) | payer MEDICAID ==
[2018-08-19] MEDS ORDERED: APRESOLINE IV ONE ×2 (22:20→23:28)
[2018-08-19] MEDS ORDERED: MAGNESIUM SULFATE 2GM/50ML 2 GM/50 ML BAG IV ONE ×2 (22:20)
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
[2018-08-19 22:41] LABS: Hemoglobin 11.1 gm/dl (10.1-14.3); Mean Corpuscular HGB Conc 33 % (30-34); Mean Corpuscular Volume 91 fl (79-97); Platelet Count 267 K/mm3 (140-440); Red Blood Count 3.76 M/mm3 (3.65-5.03); Red Cell Distribution Width 15.4 % (13.2-15.2)
[2018-08-19 22:53] LABS: INR 0.95 (0.87-1.13)
[2018-08-19 22:54] LABS: Partial Thromboplastin Time 23.5 Sec. (24.2-36.6)
[2018-08-19] MEDS ORDERED: MAGNESIUM SULFATE 40GM/1000ML 40 GM/1,000 ML BAG IV SCH (23:00)
[2018-08-19 23:12] LABS: Bilirubin,Urine NEG (Negative); Blood,Urine NEG (Negative); Color,Urine Yellow (Yellow); Protein,Urine <15 mg/dL mg/dL (Negative)
--- NOTE | 2018-08-19 23:13 | Cat Scan Report ---
CT HEAD/BRAIN WO CON CLINICAL INDICATION: Female, 32 years of age. hypertension, seizure, preeclampsia COMPARISON: CT head from July 2014. TECHNIQUE: Contiguous axial images were obtained from the vertex through the skull base.This CT exam was perform ed using one or more of the following dose reduction techniques: automated exposure control, adjustme nt of the mA and/or kV according to patient size, or use of iterative reconstruction technique. FINDINGS: No acute intracranial hemorrhage, midline shift, or extra-axial fluid collection. Ventricles and cis terns are normal in size and configuration for the patient's age. Glynn white differentiation is main tained. Calvarium is grossly intact. Mild to moderate mucosal thickening of the visualized paranasa l sinuses. Mastoid air cells are clear. Visualized ocular globes are grossly unremarkable. IMPRESSION: No grossly acute intracranial abnormality. This document is electronically signed by Ridge Soria DO., August 19 2018 11:11:27 PM ET
[2018-08-19 23:17] LABS: Alanine Aminotransferase 18 units/L (7-56); Albumin 3.6 g/dL (3.9-5); BUN/Creatinine Ratio 18; Blood Urea Nitrogen 14 mg/dL (7-17); Calcium 8.6 mg/dL (8.4-10.2); Hemolysis Index 10
[2018-08-19 23:22] LABS: Amphetamine Screen,Urine PRESUMPTIVE NEGATIVE; Benzodiazepines Screen,Urine PRESUMPTIVE NEGATIVE; Cannabinoid Screen,Urine PRESUMPTIVE NEGATIVE; Cocaine Screen,Urine PRESUMPTIVE NEGATIVE; Methadone Screen,Urine PRESUMPTIVE NEGATIVE; Opiate Screen,Urine PRESUMPTIVE NEGATIVE
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
[2018-08-20] MEDS: NORMODYNE PO SCH ×3 (01:18→22:20)
[2018-08-20] MEDS ORDERED: MAGNESIUM SULFATE 40GM/1000ML 40 GM/1,000 ML BAG IV ONE (01:24)
[2018-08-20] MEDS ORDERED: DULCOLAX PR PRN (01:37)
[2018-08-20] MEDS ORDERED: LACTATED RINGERS 1,000 ML ONE (01:37)
[2018-08-20] MEDS ORDERED: BENADRYL PO PRN (01:37)
[2018-08-20] MEDS ORDERED: PHENERGAN PR PRN (01:37)
[2018-08-20] MEDS ORDERED: ZOFRAN IV PRN (01:37)
[2018-08-20] MEDS ORDERED: PERCOCET 5/325 PO PRN (01:37)
[2018-08-20] MEDS ORDERED: PHENERGAN PO PRN (01:37)
[2018-08-20] MEDS ORDERED: TYLENOL PO PRN (01:37)
[2018-08-20] MEDS ORDERED: MAGNESIUM SULFATE 40GM/1000ML 40 GM/1,000 ML BAG IV SCH (02:00)
[2018-08-20] MEDS ORDERED: SODIUM CHLORIDE FLUSH SYRINGE 10 ML IV PRN (02:00)
[2018-08-20] MEDS: IBUPROFEN PO SCH ×2 (06:10→22:19)
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
[2018-08-20 13:43] LABS: Hemoglobin 10.8 gm/dl (10.1-14.3)
[2018-08-20] MEDS ORDERED: LACTATED RINGERS 1,000 ML IV SCH (15:00)
[2018-08-21] MEDS: NORMODYNE PO SCH (10:04)
[2018-08-21 12:24] VITALS: BP 120/77
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
== END 2018-08-21 15:46 | disposition home or self-care (01) | DRG 776 ==
LOC: ED 19:46 → LD 23:30 → OB 08-21 01:40
PROVIDERS: ADMIT Obstetrics & Gynecology; ATTEND Obstetrics & Gynecology
DX: O15.2 Eclampsia complicating the puerperium (principal)
CPT/HCPCS: 36415; 70450; 80053; 80307; 81001; 83735; 85014; 85018; 85027; 85610; 85730; 93005; 93010; G0378; J0360; J3475; J7120

== ENCOUNTER 2020-01-30 21:51 | Outpatient (CLI) | payer MEDICAID ==
[2020-01-30] MEDS ORDERED: LACTATED RINGERS 1,000 ML IV ONE (22:28)
[2020-01-30] MEDS ORDERED: MORPHINE 4 MG/1 ML INJ IM ONE (23:39)
[2020-01-30] MEDS ORDERED: diphenhydrAMINE 25 MG CAP PO ONE (23:39)
[2020-01-30 23:48] LABS: Bacteria,Urine 1+ /HPF (Negative); Bilirubin,Urine NEG (Negative); Blood,Urine NEG (Negative); Color,Urine Yellow (Yellow); Mucus,Urine FEW /HPF; Protein,Urine <15 mg/dL mg/dL (Negative); Urobilinogen,Urine < 2.0 mg/dL (<2.0)
--- NOTE | 2020-01-31 00:42 | Ultrasound Report ---
US OB limited INDICATION / CLINICAL INFORMATION: RULE OUT ABRUPTION. COMPARISON: None available. FINDINGS: Single, viable intrauterine in breech presentation. heart rate 135. Placenta is fundal, free of the cervical os. No evidence of placental abruption. IMPRESSION: 1. Viable intrauterine in breech presentation. 2. Fundal placenta, with no evidence of abruption. Signer Name: Hank Vasquez MD Signed: 01/31/2020 12:37 AM Workstation Name: [id number]
[2020-01-31 08:54] VITALS: BP 120/58
== END 2020-01-31 10:02 | disposition home or self-care (01) ==
LOC: TRG 21:51 → APU 21:59 → TRG 01-31 10:02
PROVIDERS: ATTEND Obstetrics & Gynecology
DX: O26.893 Other specified pregnancy related conditions, third trimester (principal); R10.2 Pelvic and perineal pain; M54.5 Low back pain; O99.613 Diseases of the digestive system complicating pregnancy, third trimester; K62.89 Other specified diseases of anus and rectum; O32.1XX0 Maternal care for breech presentation, not applicable or unspecified; O62.9 Abnormality of forces of labor, unspecified; Z3A.34 34 weeks gestation of pregnancy
CPT/HCPCS: 59025; 76815; 81001; 96360; 96372; J2270; J7120

== ENCOUNTER 2020-02-14 21:24 | Outpatient (CLI) | payer MEDICAID ==
[2020-02-14 21:47] VITALS: BP 131/75
[2020-02-14] MEDS ORDERED: LACTATED RINGERS 1,000 ML IV ONE (22:03)
== END 2020-02-14 23:06 | disposition home or self-care (01) ==
LOC: TRG 21:24 → APU 21:30 → TRG 23:06
PROVIDERS: ATTEND Obstetrics & Gynecology
DX: O62.9 Abnormality of forces of labor, unspecified (principal); O24.415 Gestational diabetes mellitus in pregnancy, controlled by oral hypoglycemic drugs; Z3A.36 36 weeks gestation of pregnancy
CPT/HCPCS: 59025; 96360; J7120

== ENCOUNTER 2020-03-03 19:41 | Outpatient (CLI) | payer MEDICAID ==
[2020-03-03] MEDS ORDERED: LACTATED RINGERS 1,000 ML ONE (20:25)
[2020-03-03 20:45] VITALS: BP 120/71
[2020-03-03] MEDS ORDERED: TERBUTALINE 1 MG/1 ML INJ SUB-Q ONE (21:46)
[2020-03-03] MEDS ORDERED: LACTATED RINGERS 2,000 ML IV ONE (21:46)
[2020-03-03 23:43] LABS: Bilirubin,Urine NEG (Negative); Blood,Urine NEG (Negative); Color,Urine Yellow (Yellow); Protein,Urine <15 mg/dL mg/dL (Negative); Urobilinogen,Urine < 2.0 mg/dL (<2.0); WBC,Urine < 1.0 /HPF (0.0-6.0)
[2020-03-03 23:44] LABS: Basophils # (Auto) 0.1 K/mm3 (0.0-0.1); Basophils % (Auto) 1.7 % (0.0-1.8); Eosinophils # (Auto) 0.1 K/mm3 (0.0-0.4); Eosinophils % (Auto) 0.9 % (0.0-4.3); Hematocrit 33.3 % (30.3-42.9); Hemoglobin 10.9 gm/dl (10.1-14.3); Lymphocytes # (Auto) 2.1 K/mm3 (1.2-5.4); Lymphocytes % (Auto) 28.4 % (13.4-35.0); Mean Corpuscular HGB Conc 33 % (30-34); Mean Corpuscular Volume 89 fl (79-97); Monocytes # (Auto) 0.6 K/mm3 (0.0-0.8); Monocytes % (Auto) 8.2 % (0.0-7.3); Red Blood Count 3.73 M/mm3 (3.65-5.03); Red Cell Distribution Width 14.5 % (13.2-15.2)
[2020-03-03 23:46] LABS: Platelet Count 115 K/mm3 (140-440)
--- NOTE | 2020-03-04 03:15 | Ultrasound Report ---
ULTRASOUND OBSTETRIC LIMITED ULTRASOUND BIOPHYSICAL PROFILE INDICATION / CLINICAL INFORMATION: persistent contractions, no dilation. Clinical Gestational Age (GA) in weeks, days: 38 weeks TECHNIQUE: Transabdominal. COMPARISON: 01/30/2020 FINDINGS: BREATHING MOVEMENT = 0 GROSS BODY MOVEMENT = 2 TONE = 2 QUALITATIVE AMNIOTIC FLUID VOLUME = 2 TOTAL BIOPHYSICAL SCORE = 6/8 HEART RATE (beats per minute): 140 AMNIOTIC FLUID INDEX (cm) = 24.8 (normal = 7-24 cm) PRESENTATION: Cephalic. ADDITIONAL FINDINGS: None. IMPRESSION: 1. Biophysical Score = 6/8 2. Single viable IUP in a cephalic presentation. Signer Name: Geraldine Olsen MD Signed: 03/04/2020 3:11 AM Workstation Name: [id number]
== END 2020-03-04 01:23 | disposition home or self-care (01) ==
LOC: TRG 19:41 → APU 19:53 → TRG 03-04 01:23
PROVIDERS: ATTEND Obstetrics & Gynecology
DX: O62.9 Abnormality of forces of labor, unspecified (principal); O24.813 Other pre-existing diabetes mellitus in pregnancy, third trimester; Z3A.38 38 weeks gestation of pregnancy
CPT/HCPCS: 36415; 59025; 76815; 76819; 81001; 85025; 96360; 96361; 96372; J3105; J7120

== ENCOUNTER 2020-03-10 08:35 | Inpatient (IN) | payer MEDICAID ==
--- NOTE | 2020-03-05 14:30 | History and Physical Report ---
History of Present Illness Date of examination: 03/05/20 Chief complaint: repeat c section History of present illness: 34 yo at 39w4d c/b Class I Obesity, GDM (diet controlled), hx preeclampsia/eclampsia siezures, GBS neg, hx prior c/s presenting for repeat c section + BTL. Denies labor complaints or PIH symptoms. +FM. Past History Past Medical History: diabetes Past Surgical History: section Family/Genetic History: none Social history: no significant social history - Obstetrical History : 5 Para: 4 Hx # Term Pregnancies: 4 Number of Living Children: 4 Medications and Allergies Allergies Allergy/AdvReac Type Severity Reaction Status Date / Time No Known Allergies Allergy Verified 06/06/18 05:35 Home Medications Medication Instructions Recorded Confirmed Last Taken Type Vit,Calc76/Iron/Folic 1 tab PO DAILY 06/06/18 08/20/18 06/05/18 History [Pnv 29-1 Tablet] Ferrous Sulfate [Feosol 325 MG tab] 325 mg PO QDAY #30 tablet 08/07/18 08/20/18 Unknown Rx Ibuprofen [Motrin 800 MG tab] 800 mg PO Q6H PRN #30 tablet 08/07/18 08/20/18 Unknown Rx Review of Systems All systems: negative (expect HPI) - Physical Exam Abdomen: Positive: normal appearance, normal bowel sounds, other (gravid) - Obstetrical FHR: category 1 Uterine Contraction Monitor Mode: External Uterine Contraction Pattern: Absent Results All other labs normal. Assessment and Plan - Patient Problems (1) H/O: Status: Acute Plan to address problem: --To OR for repeat c section + bilateral tubal ligation --Consented in the chart --Questions solicited and answered (2) Gestational diabetes Status: Acute Qualifiers: Gestational diabetes mellitus control: diet-controlled Trimester: third trimester Qualified Code(s): O24.410 - Gestational diabetes mellitus in , diet controlled Plan to address problem: --Diet controlled, monitor CBGs per routine
[2020-03-10] MEDS ORDERED: LACTATED RINGERS 2,000 ML ONE (09:48)
[2020-03-10 10:01] LABS: Basophils % (Auto) 0.4 % (0.0-1.8); Eosinophils # (Auto) 0.1 K/mm3 (0.0-0.4); Eosinophils % (Auto) 1.1 % (0.0-4.3); Hematocrit 35.6 % (30.3-42.9); Hemoglobin 12.3 gm/dl (10.1-14.3); Lymphocytes # (Auto) 1.6 K/mm3 (1.2-5.4); Lymphocytes % (Auto) 27.1 % (13.4-35.0); Mean Corpuscular HGB Conc 35 % (30-34); Mean Corpuscular Volume 86 fl (79-97); Monocytes # (Auto) 0.6 K/mm3 (0.0-0.8); Monocytes % (Auto) 9.2 % (0.0-7.3); Platelet Count 130 K/mm3 (140-440); Red Blood Count 4.12 M/mm3 (3.65-5.03); Red Cell Distribution Width 14.2 % (13.2-15.2)
[2020-03-10] MEDS ORDERED: ONDANSETRON 4 MG/2 ML INJ IV NR (10:04)
--- NOTE | 2020-03-10 10:34 | Anesthesia Day of Surgery ---
Anesthesia Day of Surgery - Day of Surgery Patient Examined: Yes Patient H&P Reviewed: Yes Patient is NPO: Yes Beta Blockers: No Cardiac Clearance: No Pulmonary Clearance: No Tarik's Test: N/A
[2020-03-10] MEDS ORDERED: diphenhydrAMINE 50 MG/ML VIAL IV PRN (11:00)
[2020-03-10] MEDS ORDERED: NALOXONE 0.4 MG/1 ML INJ IV PRN ×2 (11:00→16:43)
[2020-03-10] MEDS ORDERED: FAMOTIDINE 20 MG/2 ML INJ IV NR (11:00)
[2020-03-10] MEDS ORDERED: HYDROmorphone 1 MG/1 ML INJ IV PRN (11:00)
[2020-03-10] MEDS ORDERED: OXYTOCIN DRIP 30 UNITS/500 ML BAG IV SCH ×3 (11:00→17:00)
[2020-03-10] MEDS ORDERED: ONDANSETRON 4 MG/2 ML INJ IV PRN ×2 (11:00→16:43)
[2020-03-10] MEDS ORDERED: ceFAZolin/Water 2 GM/20 ML 2 GM/20 ML SYRINGE IV NR (11:00)
[2020-03-10] MEDS ORDERED: BICITRA ORAL LIQD 30ML PO NR (11:00)
[2020-03-10] MEDS ORDERED: PROMETHAZINE 25 MG RECT SUPP PR PRN ×2 (11:00→16:43)
[2020-03-10] MEDS ORDERED: METOCLOPRAMIDE 10 MG/2 ML INJ IV NR ×2 (11:00)
[2020-03-10] MEDS ORDERED: PROMETHAZINE 25 MG TAB PO PRN (11:00)
[2020-03-10] MEDS ORDERED: NalbUPHINE 10 MG/1 ML INJ IV PRN (11:00)
[2020-03-10] MEDS ORDERED: FAMOTIDINE 20 MG/2 ML INJ IV ONE (11:00)
[2020-03-10] MEDS ORDERED: LACTATED RINGERS 1,000 ML IV SCH ×2 (11:00)
--- NOTE | 2020-03-10 11:02 | Anesthesia Consultation ---
Anesthesia Consult and Med Hx Date of service: 03/10/20 - Airway Anesthetic Teeth Evaluation: Good ROM Head & Neck: Adequate Mental/Hyoid Distance: Adequate Mallampati Class: Class II Intubation Access Assessment: Probably Good - Pulmonary Exam CTA: Yes - Cardiac Exam Cardiac Exam: RRR - Pre-Operative Health Status ASA Pre-Surgery Classification: ASA2 Proposed Anesthetic Plan: Spinal Nerve Block: TAP - Pulmonary Hx Smoking: No Hx Asthma: No Hx Respiratory Symptoms: No SOB: No COPD: No Hx Pneumonia: No Hx Sleep Apnea: No - Cardiovascular System Hx Hypertension: No Hx Coronary Artery Disease: No Hx Heart Attack/AMI: No Hx Angina: No Hx Percutaneous Transluminal Coronary Angioplasty (PTCA): No Hx Cardia Arrhythmia: No Hx Pacemaker: No Hx Internal Defibrillator: No Hx Valvular Heart Disease: No Hx Heart Murmur: No Hx Peripheral Vascular Disease: No - Central Nervous System Hx Neuromuscular Disorder: No Hx Seizures: No CVA: No Hx Back Pain: No Hx Psychiatric Problems: No - Gastrointestinal Hx Ulcer: No Hx Gastroesophageal Reflux Disease: No - Endocrine Hx Renal Disease: No Hx End Stage Renal Disease: No Hx Cirrhosis: No Hx Liver Disease: No Hx Insulin Dependent Diabetes: No Hx Non-Insulin Dependent Diabetes: No Hx Thyroid Disease: No Hx Hypothyroidism: No Hx Hyperthyroidism: No - Hematic Hx Anemia: No Hx Sickle Cell Disease: No - Other Systems Hx Alcohol Use: No Hx Substance Use: No Hx Cancer: No Hx Obesity: No
[2020-03-10] MEDS ORDERED: dexAMETHasone 20 MG/5 ML VIAL ONE (11:47)
[2020-03-10] MEDS ORDERED: BUPIVACAINE/PF (0.5%) 5 MG/1 ML 30 ML VIAL INFILTRATI ONE (11:47)
[2020-03-10] MEDS ORDERED: KETOROLAC 30 MG/1 ML INJ ONE (11:47)
[2020-03-10] MEDS ORDERED: BUPIVACAINE /DEX-WATER 0.75% (2 ML) AMPULE INFILTRATI ONE (11:47)
[2020-03-10] MEDS ORDERED: ONDANSETRON 4 MG/2 ML INJ ONE (11:47)
[2020-03-10] MEDS ORDERED: SODIUM CHLORIDE 0.9% IRR 1,500 ML BOTTLE IR ONE (12:10)
[2020-03-10] MEDS ORDERED: WATER FOR IRRIG STERILE 1,500 ML BOTTLE IR ONE (12:10)
[2020-03-10] MEDS ORDERED: ceFAZolin/STERILE WATER 2 GM/20 ML SYRINGE IV ONE (12:11)
[2020-03-10] MEDS ORDERED: LACTATED RINGERS 1,000 ML ONE ×2 (12:12→13:49)
--- NOTE | 2020-03-10 12:18 | Progress Note ---
Spinal Anesthesia Block - Spinal Anesthesia Block Start Time: 11:51 Stop Time: 12:07 Performed by:: SIMÓN RIVERA (Jaziel SRNA) Procedure: Spinal anesthesia block is being performed for [C/S]. H&P, labs have been reviewed. Patient's questions and concerns have been answered. Informed consent has been performed. Timeout has was performed. Patient in sitting position on side of bed. Sterile prep and drape was performed. 3 mL 1% lidocaine skin wheal at L [3]-L [4]. Needle introducer advanced. 25-gauge spinal needle advanced, [+] CSF [-] blood. [Marcaine 10.5mg and Precedex 5mcg] Spinal dose was given. All needles removed. Patient tolerated procedure well.
[2020-03-10] MEDS ORDERED: fentaNYL 250 MCG/5 ML INJ ONE (13:55)
[2020-03-10] MEDS ORDERED: PHENYLEPHRINE/NS 1,000 MCG/10 ML SYRINGE (OR USE) IV ONE (14:00)
[2020-03-10] MEDS ORDERED: OXYTOCIN 10 UNIT/1 ML INJ ONE (14:06)
--- NOTE | 2020-03-10 14:56 | Procedure Note ---
OB Delivery Note - Delivery Date of Delivery: 03/10/20 Surgeon: BOWEN RUSHING JR Estimated blood loss: other (3000cc) - Section Preop diagnosis: repeat , desires sterilization Postop diagnosis: same section procedure: section, repeat low transverse, bilateral tubal ligation, other (lysis of adhesions) Disposition: PACU Complications: hematoma, transfusion, intra-op hemorrhage, uterine atony, retained placenta, other (asprin use leading to oozing throughout entire procedure, rectus muscle bleeding, no overt arterial bleeding noted) Narrative: Indication: 34 yo at 39w4d c/b Class I Obesity, GDM (diet controlled), hx preeclampsia/eclampsia siezures on asprin, GBS neg, hx prior c/s presenting for repeat c section + BTL Findings: Normal uterus, tubes and ovaries. Clear fluid. No nuchal cord. Significant lysis of adhesions with perisistent oozing at all layers likely 2/2 to aspirin use. Delivery of infant breech given compound presentation with hand palpate along with head Delivery male infant 3262 g Apgars 8/9 Urine output 200 cc EBL 3000 cc Intraoperative IV fluids 2200 cc Procedure: Patient was taken to the operating room prepped and draped in the usual sterile fashion. Pfannenstiel skin incision was made and carried down to the underlying fascia. Fascia was incised and the incision was distended bilaterally. Rectus fascia was dissected off the rectus muscle superiorly and inferiorly. Peritoneum was identified and entered. Peritoneal incision extended superiorly and inferiorly. The bladder was visualized. The bladder blade was placed. Uterine hysterotomy incision was made and extended bilaterally. The baby had a compound presentation with hand palpated. Attempted to reduce and use Kiwi, but failed. Proceeded to deliver breech starting with right foot, left foot, truck, right arm, left arm, then head. Baby was bulb suction at delivery. The cord was cut and clamped and handed off to the team. The placenta was delivered manually 2/2 to cord avulsion at the placental junction. The uterus was exteriorized and cleared of all clots and debris. Uterine incision was closed with a 0 Vicryl in a running locked fashion. Good hemostasis was noted after bovie electrocautery, hemoblast x 2, Surgicel, figure of eight sutures at the hysterotomy x 3. The urine was noted to be clear. Uterus, tubes, and ovaries were returned to the abdominal cavity. Bilateral gutters were cleared and the abdomen and pelvis were irrigated. Good hemostasis noted. Attention was directed towards the rectus fascia which was reapproximated with 0 PDS in a running fashion. The subcutaneous tissue was irrigated and reapproximated with 2-0 Vicryl in a running fashion. Skin was closed with a 4-0 Vicryl in a subcuticular fashion. The procedure was completed and the patient tolerated the procedure well. All instruments and lap counts were correct x2. - Infant A at 1 minute: 8 at 5 minutes: 9 Infant Gender: Male
[2020-03-10] MEDS ORDERED: SODIUM CHLORIDE 0.9% 500 ML 500 ML IV ONE (15:00)
--- NOTE | 2020-03-10 15:53 | Progress Note ---
Regional Anesthesia Block - Regional Anesthesia Block Start Time: 15:10 Stop Time: 15:20 Performed By:: SIMÓN RIVERA (Jaziel MENDEZ) Procedure: Patient consented for TAP block for post surgical pain management. Patient identified, monitors placed, and time out performed. Mid axillary TAP identified bilaterally via ultrasound. Skin prepped bilaterally with [chlorhexidine] and [20g stimuplex] needle advanced to the TAP. 30ml [Marcaine 0.25% with 25mcg Precedex and Decadron 4mg] injected under ultrasound guidance on the [left] side. 30ml [Marcaine 0.25% with 25mcg Precedex and Decadron 4mg] injected under ultrasound guidance on the [right] side.
[2020-03-10] MEDS ORDERED: SIMETHICONE 80 MG CHEW TAB PO PRN (16:43)
[2020-03-10] MEDS ORDERED: SENNOSIDES 8.6 MG TAB PO PRN (16:43)
[2020-03-10] MEDS ORDERED: WITCH HAZEL/ GLYCERIN PAD TP PRN (16:43)
[2020-03-10] MEDS ORDERED: MAGNESIUM HYDROXIDE (MOM) ORAL LIQD UDC PO PRN (16:43)
[2020-03-10] MEDS ORDERED: LANOLIN/ZINC/DIMETHICONE (LANSINOH) 7 GM TP PRN (16:43)
[2020-03-10] MEDS ORDERED: HYDROCORTISONE 25 MG RECTAL SUPP PR PRN (16:43)
[2020-03-10] MEDS: MORPHINE 4 MG/1 ML INJ IV PRN ×2 (18:58→23:42)
[2020-03-10 22:54] LABS: Hematocrit 34.3 % (30.3-42.9); Hemoglobin 11.2 gm/dl (10.1-14.3)
[2020-03-11] MEDS: oxyCODONE /ACETAMINOPHEN 5-325MG TAB PO PRN ×2 (04:21→18:53)
[2020-03-11 07:45] LABS: Hematocrit 29.6 % (30.3-42.9); Hemoglobin 9.9 gm/dl (10.1-14.3)
[2020-03-11] MEDS: IBUPROFEN 800 MG TAB PO PRN ×2 (09:28→14:56)
--- NOTE | 2020-03-11 12:01 | Progress Note ---
Assessment and Plan - Patient Problems (1) Status post repeat low transverse section Current Visit: Yes Status: Acute Plan to address problem: Continue routine PP orders Keep dressing clean and dry, remove on POD#2 Anticipate d/c home in 24-48 hr if stable (2) Anemia due to blood loss, acute Current Visit: No Status: Acute Plan to address problem: Asymptomatic Increase iron rich foods into diet once on regular diet again (3) Status post tubal ligation at time of delivery, current hospitalization Current Visit: Yes Status: Acute Subjective - Subjective Date of service: 03/11/20 Principal diagnosis: S/P repeat C/S with BTL; POD#1 Interval history: See admission H & P; OB operative summary and PP progress notes Patient reports: appetite normal, voiding normally, pain well controlled (with medications), ambulating normally, no flatus, no bowel movement : doing well, bottle feeding (and ) Objective - Vital Signs Latest vital signs: Vital Signs Temp Pulse Resp BP BP Pulse Ox 03/11/20 08:22 99.2 F 80 20 116/70 03/11/20 04:47 99.0 F 86 20 108/61 98 03/11/20 04:21 18 03/11/20 01:04 99.0 F 82 20 111/59 98 03/10/20 23:42 18 03/10/20 21:07 99.0 F 82 20 103/67 98 03/10/20 17:30 98.3 F 89 19 116/53 98 03/10/20 16:00 93 H 23 106/61 100 03/10/20 15:45 89 22 128/74 100 03/10/20 15:30 98 H 18 116/56 100 03/10/20 15:15 99 H 21 122/38 100 03/10/20 15:10 98 H 17 107/39 100 03/10/20 15:05 97.6 F 88 16 109/62 100 Intake and Output 03/10/20 03/11/20 03/11/20 23:59 07:59 15:59 Intake Total 640 560 Output Total 1000 800 Balance -360 -240 Intake: IV 200 Oral 440 560 Output: Urine 1000 800 Indwelling Catheter 400 Uretheral (Fenton) 400 200 Void 600 Other: Total, Intake Amount 240 120 Total, Output Amount 200 300 - Exam Breasts: Present: normal Cardiovascular: Present: Regular rate Lungs: Present: Normal air movement Abdomen: Present: soft, tenderness Uterus: Present: firm, fundal height below umbilicus (U-1) Extremities: Present: edema Deep Tendon Reflex Grade: Normal +2 Incision: Present: dressed (no shadow drainage or bleeding noted) - Labs Labs: Abnormal lab results 03/10/20 03/11/20 Range/Units 09:40 06:52 Hgb 9.9 L (10.1-14.3) gm/dl Hct 29.6 L (30.3-42.9) % Crossmatch See Detail
[2020-03-12] MEDS: oxyCODONE /ACETAMINOPHEN 5-325MG TAB PO PRN ×2 (01:50→09:43)
[2020-03-12] MEDS: IBUPROFEN 800 MG TAB PO PRN (09:44)
--- NOTE | 2020-03-12 13:34 | Progress Note ---
Assessment and Plan A: POD #2 Asymptomatic Anemia GDM A1 P: Follow Routine PostOp Orders D/C Home today per patient request Continue GDM Diet at home FeSO4 325mg PO BID RTO in 2 Weeks Subjective - Subjective Date of service: 03/12/20 Principal diagnosis: S/P repeat C/S with BTL; POD#1 Patient reports: appetite normal, voiding normally, pain well controlled, flatus, ambulating normally, other (denies dizziness, fatigue, and lightheadness) Kendrick: doing well, bottle feeding (and ) Objective - Vital Signs Latest vital signs: Vital Signs Temp Pulse Resp BP BP Pulse Ox 03/12/20 09:44 20 03/12/20 09:43 20 03/12/20 08:01 98.7 F 87 20 98/62 98 03/12/20 01:50 18 03/12/20 00:00 98.6 F 74 18 118/79 03/11/20 20:19 98.6 F 92 H 18 110/62 98 Intake and Output 03/11/20 03/12/20 03/12/20 22:59 06:59 14:59 Intake Total 600 360 Balance 600 360 Intake: Oral 120 Intake, Free Water 600 240 Other: Total, Intake Amount 120 # Voids Void 1 1 - Exam Breasts: Present: normal Cardiovascular: Present: Regular rate Lungs: Present: Clear to auscultation, Normal air movement Abdomen: Present: normal appearance, soft, normal bowel sounds Uterus: Present: normal, firm, fundal height below umbilicus Extremities: Present: normal Incision: Present: normal, dry, intact - Labs Labs: Abnormal lab results 03/10/20 Range/Units 09:40 Crossmatch See Detail
--- NOTE | 2020-03-12 13:36 | Discharge Summary ---
Providers - Providers Date of Admission: 03/10/20 08:35 Date of discharge: 03/12/20 Attending physician: BOWEN RUSHING JR, MD Primary care physician: ASHWINI OVALLE Hospitalization Reason for admission: section Delivery: Procedure: bilateral tubal ligation, repeat low transverse Episiotomy: none Laceration: none Incision: normal, dry, intact Other procedures: none complications: none Discharge diagnosis: IUP at term delivered [place] baby: male Condition at discharge: Good Disposition: DC-01 TO HOME OR SELFCARE Plan - Discharge Medications Prescriptions: Ibuprofen [Motrin 800 MG tab] 800 mg PO Q6H PRN #30 tablet PRN Reason: Pain, Mild (1-3) oxyCODONE /ACETAMINOPHEN [Percocet 5/325 mg] 1 tab PO Q6H PRN #30 tablet PRN Reason: Pain, Moderate (4-6) - Provider Discharge Summary Activity: routine, no sex for 6 weeks, no heavy lifting 4 weeks, no strenuous exercise Diet: routine Instructions: routine Additional instructions: [] Smoking cessation referral if applicable(refer to patient education folder for contact #) [] Refer to [facility]'s [facility] Booklet Call your doctor immediately for: * Fever > 100.5 * Heavy vaginal bleeding ( >1 pad per hour) * Severe persistent headache * Shortness of breath * Reddened, hot, painful area to leg or breast * Drainage or odor from incision. * Keep incision clean and dry at all times and follow doctor's instructions regarding bathing/showering - Follow up plan Follow up: BOWEN RUSHING JR, MD [Staff Physician] - 14 Days
[2020-03-12 17:09] VITALS: BP 114/75
== END 2020-03-12 16:00 | disposition home or self-care (01) | DRG 765 ==
LOC: APU 08:35 → OB 17:00
PROVIDERS: ADMIT Obstetrics & Gynecology; ATTEND Obstetrics & Gynecology
PROC: 10D00Z1 Extraction of Products of Conception, Low, Open Approach (ICD-10-PCS; principal; 2020-03-10)
PROC: 0UB70ZZ Excision of Bilateral Fallopian Tubes, Open Approach (ICD-10-PCS; 2020-03-10)
DX: O24.420 Gestational diabetes mellitus in childbirth, diet controlled (principal); D62 Acute posthemorrhagic anemia; O65.5 Obstructed labor due to abnormality of maternal pelvic organs; Z20.828 Contact with and (suspected) exposure to other viral communicable diseases; O32.1XX0 Maternal care for breech presentation, not applicable or unspecified; O99.214 Obesity complicating childbirth; O90.81 Anemia of the puerperium; O34.211 Maternal care for low transverse scar from previous cesarean delivery; N85.8 Other specified noninflammatory disorders of uterus; Z3A.39 39 weeks gestation of pregnancy; Z37.0 Single live birth; Z30.2 Encounter for sterilization
CPT/HCPCS: 36415; 85014; 85018; 85025; 86850; 86900; 86901; 86920; 88307; G0378; J0690; J1100; J1885; J2270; J2370; J2405; J2590; J2765; J3010; J3490; J7120; P9016; U0003